=== PATIENT | female | born 1945 | race Caucasian/White ===

== ENCOUNTER 2016-07-01 07:54 | Day surgery (SDC) | payer MEDICARE, OTHER ==
[~2016-07-01 07:54] MED LIST: Lactated Ringers 1,000 ML IV SCH; Lidocaine 1%/Sod Bicarbonate in NS 8.4% 1 ML Syringe IV PRN; Sodium Chloride 0.9% 10 ML Syringe FLUSH PRN
--- NOTE | 2016-07-01 08:26 | PCM.PREANE ---
Preanesthetic Assessment - Anesthesia/Transfusion/Family Hx Anesthesia History: Prior Anesthesia Without Reaction Family History of Anesthesia Reaction: No Transfusion History: No Prior Transfusion(s) - Review of Systems General: No Symptoms Pulmonary: No Symptoms Cardiovascular: Other (afib (chronic anticoagulation), HTN , HLD) Gastrointestinal: No symptoms Neurological: No Symptoms Other: Reports: Easy Bleeding, Easy Bruising - Physical Assessment NPO Status Date: 06/30/16 NPO Status Time: 23:55 Pulse: 64 O2 Sat by Pulse Oximetry: 96 Respiratory Rate: 16 Blood Pressure: 151/83 Temperature: 36.9 C Height: 1.7 m Weight: 77.111 kg ASA Class: 2 Mental Status: Alert & Oriented x3 Airway Class: Mallampati = 2 Dentition: Reports: Normal Dentition Thyro-Mental Finger Breadths: 3 Mouth Opening Finger Breadths: 3 ROM/Head Extension: Full Lungs: Clear to auscultation, Normal respiratory effort Cardiovascular: Irregular Rhythm (afib) - Allergies Allergies/Adverse Reactions: Allergies Allergy/AdvReac Type Severity Reaction Status Date / Time lisinopril AdvReac Cough Verified 06/30/16 14:46 - Blood Blood Available: No Product(s) Available: None - Anesthesia Plan Pre-Op Medication Ordered: None - Acknowledgements Anesthesia Type Planned: MAC Pt an Appropriate Candidate for the Planned Anesthesia: Yes Alternatives and Risks of Anesthesia Discussed w Pt/Guardian: Yes Pt/Guardian Understands and Agrees with Anesthesia Plan: Yes PreAnesthesia Questionnaire HEENT History: Reports: Allergic rhinitis Cardiovascular History: Reports: High cholesterol, Hypertension Respiratory History: Reports: None Gastrointestinal History: Reports: Colon polyp, GERD, Hemorrhoids Genitourinary History: Reports: UTI, recurrent, Other (see below) Other Genitourinary History: frequency 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: Musculoskeletal History: Reports: None Neurological History: Reports: None Psychiatric History: Reports: None Endocrine/Metabolic History: Reports: None Hematologic History: Reports: Other (see below) Other Hematologic History: thrombocytopenia Immunologic History: Reports: None Oncologic (Cancer) History: Reports: None Dermatologic History: Reports: None - Past Surgical History Head Surgeries/Procedures: Reports: None HEENT Surgical History: Reports: Tonsillectomy GI Surgical History: Reports: Colonoscopy Female Surgical History: Reports: Tubal ligation - SUBSTANCE USE Smoking Status *Q: Former Smoker Tobacco Use Within Last Twelve Months: Cigarettes Second Hand Smoke Exposure: No Days Per Week of Alcohol Use: 7 Number of Drinks Per Day: 2 Total Drinks Per Week: 14 Recreational Drug Use History: No - HOME MEDS Home Medications: Home Meds Cetirizine [ZyrTEC] 10 mg PO DAILY 11/21/14 [History] Multivits-Minerals/FA/Lycopene [One Daily Tablet] 1 tab PO DAILY 11/21/14 [ History] Omeprazole 20 mg PO DAILY 11/21/14 [History] Simvastatin [Zocor] 20 mg PO DAILY 11/21/14 [History] Warfarin [Coumadin] 5 mg PO DAILY 10 Days 11/23/14 [Rx] Calcium Carbonate/Vitamin D3 [Calcium 500 + Vit D Caplet] 1 tab PO DAILY [History] Diltiazem HCl [Cardizem Cd] 360 mg PO DAILY 06/30/16 [History] - CURRENT (IN HOUSE) MEDS Current Meds: Current Medications Lactated Ringer's (Ringers, Lactated) 1,000 mls @ 125 mls/hr IV ASDIRECTED CHARLES Lidocaine/Sodium Bicarbonate (Buffered Lidocaine 1% In Ns 8.4%) 0.25 ml IV ONETIME PRN PRN Reason: Prior to IV Start Sodium Chloride (Saline Flush) 10 ml FLUSH ASDIRECTED PRN PRN Reason: Keep Vein Open
[2016-07-01] MEDS ORDERED: Propofol 200 MG/20 ML SDV ONE ×2 (08:48→10:01)
[2016-07-01] MEDS ORDERED: fentaNYL 100 MCG/2 ML SDV ONE (08:48)
[2016-07-01] MEDS ORDERED: Lidocaine 1% 4 ML ONE (08:49)
--- NOTE | 2016-07-01 10:03 | PCM48HPAN ---
Post Anesthesia Note - EVALUATION WITHIN 48HRS OF ANESTHETIC Vital Signs in Normal Range: Yes Patient Participated in Evaluation: Yes Respiratory Function Stable: Yes Airway Patent: Yes Cardiovascular Function Stable: Yes Hydration Status Stable: Yes Pain Control Satisfactory: Yes Nausea and Vomiting Control Satisfactory: Yes Mental Status Recovered: Yes
--- NOTE | 2016-07-01 10:04 | PCM.OPNOTE ---
- General Post-Op/Procedure Note Date of Surgery/Procedure: 07/01/16 Operative Procedure(s): colonoscopy with polypectomy x2 of the cecum, and sigmoid Findings: 1. external anal tags 2. internal hemorrhoids 3. sigmoid divertuculosis 4. cecal polyp times 2 -- diminutive 5. sigmoid polyp x1 -- diminutive Pre Op Diagnosis: bright red rectal bleeding, and history of colon polyps Post-Op Diagnosis: 1. external anal tags. 2. internal hemorrhoids. 3. sigmoid divertuculosis. 4. cecal polyp times 2 -- diminutive. 5. sigmoid polyp x1 -- diminutive Anesthesia Technique: MAC, Moderate sedation Primary Surgeon: Edward Goins Pathology: cecal polyp times 2 and sigmoid polyp tines 1 EBL in mLs: 0 Complications: None Condition: Good Free Text/Narrative:: After adequate IV sedation and analgesia was obtained The patient was placed on her left side. Perianal inspection revealed an external tag, and internal hemorrhoids. A lubricated colonoscope was inserted into the rectum and advanced to the cecum without difficulty. The bowel preparation was adequate. There was a cecal polyp, which was removed with cold forceps. The cecum, right colon, and transverse colons were otherwise unremarkable. The descending colon was endoscopically normal. The sigmoid had scattered uncomplicated diverticula. There was a sigmoid polyp, which was small that was removed with cold forceps. Within the retroflexed view the hemorrhoids were seen. Photographs were taken for the patient and for the record. Air was removed, as I finished the procedure , which she tolerated well.
[2016-07-01 10:49] VITALS: BP 151/83
--- NOTE | 2016-07-01 10:49 | PCM.PREANE ---
Preanesthetic Assessment - Anesthesia/Transfusion/Family Hx Anesthesia History: Prior Anesthesia Without Reaction Family History of Anesthesia Reaction: No Transfusion History: No Prior Transfusion(s) - Review of Systems General: No Symptoms Pulmonary: No Symptoms Cardiovascular: No Symptoms, Other ([place] 2003) Gastrointestinal: No symptoms, Other (bloated every once in a while) Neurological: No Symptoms Other: Reports: Easy Bleeding, Easy Bruising - Physical Assessment NPO Status Date: 06/30/16 NPO Status Time: 23:55 Pulse: 64 O2 Sat by Pulse Oximetry: 95 Respiratory Rate: 20 Blood Pressure: 151/83 Temperature: 98.4 F Vital Signs: Last Vital Signs Temp 97.9 F 07/01/16 09:59 Pulse 75 07/01/16 09:59 Resp 20 07/01/16 09:59 BP 110/54 L 07/01/16 09:59 Pulse Ox 95 07/01/16 09:59 Height: 5 ft 7 in Weight: 77.111 kg ASA Class: 3 Mental Status: Alert & Oriented x3 Airway Class: Mallampati = 1 Dentition: Reports: Normal Dentition Thyro-Mental Finger Breadths: 3 Mouth Opening Finger Breadths: 3 ROM/Head Extension: Full Lungs: Clear to auscultation, Normal respiratory effort Cardiovascular: Regular Rate, Regular Rhythm - Allergies Allergies/Adverse Reactions: Allergies Allergy/AdvReac Type Severity Reaction Status Date / Time lisinopril AdvReac Cough Verified 06/30/16 14:46 - Blood Blood Available: No Product(s) Available: None - Acknowledgements Anesthesia Type Planned: MAC Pt an Appropriate Candidate for the Planned Anesthesia: Yes Alternatives and Risks of Anesthesia Discussed w Pt/Guardian: Yes Pt/Guardian Understands and Agrees with Anesthesia Plan: Yes PreAnesthesia Questionnaire HEENT History: Reports: Allergic rhinitis Cardiovascular History: Reports: Hypertension, [place] (about 2003) Respiratory History: Reports: None Gastrointestinal History: Reports: Colon polyp, GERD, Hemorrhoids Genitourinary History: Reports: UTI, recurrent, Other (see below) Other Genitourinary History: frequency 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: Musculoskeletal History: Reports: None Neurological History: Reports: None Psychiatric History: Reports: None Endocrine/Metabolic History: Reports: None Hematologic History: Reports: Other (see below) Other Hematologic History: thrombocytopenia Immunologic History: Reports: None Oncologic (Cancer) History: Reports: None, Lymphoma (b cell) Dermatologic History: Reports: None - Past Surgical History Head Surgeries/Procedures: Reports: None HEENT Surgical History: Reports: Tonsillectomy GI Surgical History: Reports: Colonoscopy Female Surgical History: Reports: Tubal ligation - SUBSTANCE USE Smoking Status *Q: Former Smoker Tobacco Use Within Last Twelve Months: Cigarettes Second Hand Smoke Exposure: No Days Per Week of Alcohol Use: 7 Number of Drinks Per Day: 2 Total Drinks Per Week: 14 Recreational Drug Use History: No - HOME MEDS Home Medications: Home Meds Cetirizine [ZyrTEC] 10 mg PO DAILY 11/21/14 [History] Multivits-Minerals/FA/Lycopene [One Daily Tablet] 1 tab PO DAILY 11/21/14 [ History] Omeprazole 20 mg PO DAILY 11/21/14 [History] Simvastatin [Zocor] 20 mg PO DAILY 11/21/14 [History] Warfarin [Coumadin] 5 mg PO DAILY 10 Days 11/23/14 [Rx] Calcium Carbonate/Vitamin D3 [Calcium 500 + Vit D Caplet] 1 tab PO DAILY [History] Diltiazem HCl [Cardizem Cd] 360 mg PO DAILY 06/30/16 [History] - CURRENT (IN HOUSE) MEDS Current Meds: Current Medications Discontinued Medications Fentanyl (Sublimaze) Confirm Administered Dose 100 mcg .ROUTE .STK-MED ONE Stop: 07/01/16 08:49 Lactated Ringer's (Ringers, Lactated) 1,000 mls @ 125 mls/hr IV ASDIRECTED [facility] Last Admin: 07/01/16 08:15 Dose: 125 mls/hr Lidocaine HCl (Xylocaine-Mpf 1%) Confirm Administered Dose 4 mls @ as directed .ROUTE .STK-MED ONE Stop: 07/01/16 08:50 Lidocaine/Sodium Bicarbonate (Buffered Lidocaine 1% In Ns 8.4%) 0.25 ml IV ONETIME PRN PRN Reason: Prior to IV Start Last Admin: 07/01/16 08:14 Dose: 0.25 ml Propofol (Diprivan 20 Ml) Confirm Administered Dose 200 mg .ROUTE .STK-MED ONE Stop: 07/01/16 08:49 Propofol (Diprivan 20 Ml) Confirm Administered Dose 200 mg .ROUTE .STK-MED ONE Stop: 07/01/16 10:02 Sodium Chloride (Saline Flush) 10 ml FLUSH ASDIRECTED PRN PRN Reason: Keep Vein Open
== END 2016-07-01 10:26 | disposition home or self-care (01) ==
LOC: JD.SDS 07:54
PROVIDERS: ATTEND Surgery
DX: Z12.11 Encounter for screening for malignant neoplasm of colon (principal); D12.0 Benign neoplasm of cecum; K63.5 Polyp of colon; K57.30 Diverticulosis of large intestine without perforation or abscess without bleeding; Z88.8 Allergy status to other drugs, medicaments and biological substances; K64.4 Residual hemorrhoidal skin tags; K64.8 Other hemorrhoids; I10 Essential (primary) hypertension; K21.9 Gastro-esophageal reflux disease without esophagitis; E78.5 Hyperlipidemia, unspecified; T78.40XA Allergy, unspecified, initial encounter; Z79.01 Long term (current) use of anticoagulants; Z79.899 Other long term (current) drug therapy; Z98.890 Other specified postprocedural states; Z98.51 Tubal ligation status; Z87.891 Personal history of nicotine dependence; Z72.0 Tobacco use
CPT/HCPCS: 45380; 88305; J3010; J7120; 00810; J2704